=== PATIENT | male | born 1955 | race Caucasian/White ===

== ENCOUNTER 2016-08-13 09:59 | Emergency (ER) | payer BC ==
[~2016-08-13] VITALS: Ht 180.3 cm; Wt 110.0 kg
[2016-08-13 10:01] VITALS: BP 163/98; PULSE 84; RESP 20; TEMP 97.9; O2SAT 93
[2016-08-13] MEDS ORDERED: FOLI800T PO (12:28)
[2016-08-13] MEDS ORDERED: PLAV75TA29 PO (12:28)
[2016-08-13] MEDS ORDERED: LEVO.15 PO (12:28)
[2016-08-13] MEDS ORDERED: REME30TA PO (12:28)
[2016-08-13] MEDS ORDERED: LISI40TA PO (12:28)
[2016-08-13] MEDS ORDERED: TEMA30CA PO (12:28)
[2016-08-13] MEDS ORDERED: FISHCAP4 PO (12:28)
[2016-08-13] MEDS ORDERED: KLON2TAB PO (12:28)
[2016-08-13] MEDS ORDERED: MAGN500T2 PO (12:28)
[2016-08-13] MEDS ORDERED: IRON18TA2 PO (12:28)
[2016-08-13] MEDS ORDERED: ASPI1TAB69 PO (12:28)
[2016-08-13] MEDS ORDERED: LIPI40TA PO (12:28)
[2016-08-13] MEDS ORDERED: imdur PO (12:29)
[2016-08-13] MEDS ORDERED: FLEC1TAB8 PO (12:30)
--- NOTE | 2016-08-13 12:39 | PD ---
HPI Chief Complaint: General Weakness Time Seen by Provider: 12:15 Travel History International Travel<30 days: No Contact w/Intl Traveler<30days: No Traveled to known affect area: No History of Present Illness HPI This patient complains of feeling lightheaded. He's been that way every day for 2 months. He saw his primary physician did a physical exam and ordered brain CT which was negative. Patient denies fever or head injury. He is not having headache or chest pain. Symptoms severity is moderate. No syncope. No alleviating factors. He complains of some generalized malaise and weakness. PFSH Social History Alcohol Use: No Tobacco Use: No Substance Use: No Allergies-Medications Reported Meds & Prescriptions Reported Meds & Active Scripts Active Reported Flecainide (Flecainide Acetate) 50 Mg Tab 50 Mg PO DAILY [imdur] 40 Mg PO DAILY Iron (Ferrous Fumarate) 18 Mg Tab 65 Mg PO DAILY Folic Acid 800 Mcg Tab 800 Mcg PO DAILY Fish Oil + D3 (Fish Oil-Cholecalciferol) 1,200-1,000 Mg-Unit Cap 1 Cap PO DAILY Magnesium Oxide 500 Mg Tab 500 Mg PO DAILY Klonopin (Clonazepam) 2 Mg Tab 2 Mg PO BID Temazepam 30 Mg Cap 30 Mg PO HS PRN Remeron (Mirtazapine) 30 Mg Tab 30 Mg PO HS Lipitor (Atorvastatin Calcium) 40 Mg Tab 40 Mg PO HS Plavix (Clopidogrel Bisulfate) 75 Mg Tab 75 Mg PO DAILY Aspirin 81 Mg Tabdr 81 Mg PO DAILY Lisinopril 40 Mg Tab 40 Mg PO BID Synthroid (Levothyroxine Sodium) 150 Mcg Tab 150 Mcg PO DAILY Review of Systems General / Constitutional: No: Fever Eyes: No: Visual changes HENT: Positive: Lightheadedness, No: Headaches Cardiovascular: No: Chest Pain or Discomfort Respiratory: No: Shortness of Breath Gastrointestinal: No: Abdominal Pain Genitourinary: No: Dysuria Musculoskeletal: Positive: Weakness, No: Pain Skin: No Rash Neurologic: Positive: Weakness Psychiatric: No: Depression Endocrine: No: Polydipsia Hematologic/Lymphatic: No: Easy Bruising Physical Exam Narrative GENERAL: Well-nourished, well-developed patient in no apparent distress. SKIN: Warm and dry. HEAD: Atraumatic. Normocephalic. EYES: Pupils equal and round. No scleral icterus. No injection or drainage. ENT: No nasal bleeding or discharge. Mucous membranes pink and moist. NECK: Trachea midline. No JVD. CARDIOVASCULAR: Regular rate and rhythm. No murmur appreciated. RESPIRATORY: No accessory muscle use. Clear to auscultation. Breath sounds equal bilaterally. GASTROINTESTINAL: Abdomen soft, non-tender, nondistended. Hepatic and splenic margins not palpable. MUSCULOSKELETAL: No obvious deformities. No clubbing. No cyanosis. No edema. NEUROLOGICAL: Awake and alert. No obvious cranial nerve deficits. Motor grossly within normal limits. Normal speech. PSYCHIATRIC: Appropriate mood and affect; insight and judgment normal. Data Data Last Documented VS Vital Signs Date Time Temp Pulse Resp B/P Pulse Ox O2 Delivery O2 Flow Rate FiO2 08/13/16 10:01 97.9 84 20 163/98 93 Room Air Orders Iv Access Insert/Monitor (08/13/16 12:29) Complete Blood Count With Diff (08/13/16 12:29) Basic Metabolic Panel (Bmp) (08/13/16 12:29) Labs Laboratory Tests Test 08/13/16 12:40 White Blood Count 6.8 TH/MM3 Red Blood Count 4.95 MIL/MM3 Hemoglobin 14.4 GM/DL Hematocrit 42.6 % Mean Corpuscular Volume 86.1 FL Mean Corpuscular Hemoglobin 29.1 PG Mean Corpuscular Hemoglobin 33.8 % Concent Red Cell Distribution Width 14.2 % Platelet Count 192 TH/MM3 Mean Platelet Volume 8.6 FL Neutrophils (%) (Auto) 76.1 % Lymphocytes (%) (Auto) 13.6 % Monocytes (%) (Auto) 8.6 % Eosinophils (%) (Auto) 1.4 % Basophils (%) (Auto) 0.3 % Neutrophils # (Auto) 5.2 TH/MM3 Lymphocytes # (Auto) 0.9 TH/MM3 Monocytes # (Auto) 0.6 TH/MM3 Eosinophils # (Auto) 0.1 TH/MM3 Basophils # (Auto) 0.0 TH/MM3 CBC Comment DIFF FINAL Differential Comment Sodium Level 138 MEQ/L Potassium Level 5.0 MEQ/L Chloride Level 108 MEQ/L Carbon Dioxide Level 26.1 MEQ/L Anion Gap 4 MEQ/L Blood Urea Nitrogen 17 MG/DL Creatinine 1.15 MG/DL Estimat Glomerular Filtration 64 ML/MIN Rate Random Glucose 97 MG/DL Calcium Level 9.0 MG/DL [facility] Medical Decision Making Medical Screen Exam Complete: Yes Emergency Medical Condition: Yes Medical Record Reviewed: Yes Differential Diagnosis Labyrinthitis, vertigo, renal failure, anemia Narrative Course I have reviewed the patient's electronic medical record. Patient is no objective findings on exam. He is neurologically intact. IV placed CBC is normal Metabolic profile is normal Patient is up walking around without difficulty. He looks asymptomatic. He's had lightheadedness for 2 solid months and should follow-up with primary care He will discuss with a neurologic referral is indicated Diagnosis Primary Impression: Light-headedness Additional Instructions: The patient was advised to follow up with their physician and return if they worsen. Med/Other Pt SpecificInfo: Other Disposition: 01 DISCHARGE HOME Condition: Stable Ezequiel Cardozo MD Aug 13, 2016 12:39
[2016-08-13 12:48] LABS: AUTOMATED NEUTROPHIL # 5.2 TH/MM3 (1.8-7.7); BASOPHIL % 0.3 % (0.0-2.0); EOSINOPHIL # 0.1 TH/MM3 (0-0.4); EOSINOPHIL % 1.4 % (0.0-4.0); HEMATOCRIT 42.6 % (39.0-51.0); HEMO FLAGS DIFF FINAL; LYMPH % 13.6 % (9.0-44.0); LYMPHOCYTE # 0.9 TH/MM3 (1.0-4.8); MEAN CELL VOLUME 86.1 FL (80.0-100.0); MEAN CORPUSCULAR HEMOGLOBIN 29.1 PG (27.0-34.0); MEAN CORPUSCULAR HGB CONC 33.8 % (32.0-36.0); MONO % 8.6 % (0.0-8.0); NEUT % 76.1 % (16.0-70.0); PLATELET COUNT 192 TH/MM3 (150-450); RED BLOOD COUNT 4.95 MIL/MM3 (4.50-5.90); RED CELL DISTRIBUTION WIDTH 14.2 % (11.6-17.2); WHITE BLOOD COUNT 6.8 TH/MM3 (4.0-11.0)
[2016-08-13 13:15] LABS: BICARBONATE 26.1 MEQ/L (21.0-32.0)
[2016-08-14] MEDS ORDERED: ISOS20TA PO (10:26)
== END 2016-08-13 14:20 | disposition home or self-care (01) ==
LOC: NEPB 09:59
DX: R42 Dizziness and giddiness (principal); R53.81 Other malaise; R53.1 Weakness
CPT/HCPCS: 80048; 85025; 99283